=== PATIENT | female | born 1995 | race Hispanic/Latino ===

== ENCOUNTER 2018-07-14 15:15 | Emergency (ER) | payer OTHER, SELFPAY ==
[2018-07-14 16:05] LABS: Urine Blood NEGATIVE (NEG); Urine Glucose NEGATIVE (NEG); Urine Protein 1+ (NEG); Urine Specific Gravity 1.025 (1.005-1.030)
[2018-07-14] MEDS ORDERED: KETOROLAC 30 MG/ML INJ ONE (16:10)
[2018-07-14] MEDS ORDERED: HYDROCODONE/APAP 5/325 MG TAB ONE (16:10)
[2018-07-14] MEDS ORDERED: DIAZEPAM 2 MG TABLET ONE (16:10)
--- NOTE | 2018-07-14 16:59 | RAD REPORT ---
EXAM DESCRIPTION: RAD - Lumbar Spine 3 Views - 07/14/2018 4:10 pm CLINICAL HISTORY: Pain;Smash injury Radiculopathy COMPARISON: No comparisons FINDINGS: Vertebral body heights appear maintained. No compression fracture noted. Disc spaces are m aintained. No spondylolysis or spondylolisthesis. IMPRESSION: Negative study.
--- NOTE | 2018-07-14 17:12 | ER ---
Nurse's Notes [facility] Name: Kenyetta Conti Age: 22 yrs Sex: Female : 1995 Arrival Date: 07/14/2018 Time: 15:17 Bed 13 Private MD: None, None Diagnosis: Fall (on) (from) unspecified stairs and steps;Contusion of back wall of thorax;Low back pain Presentation: 07/14 15:22 Presenting complaint: Patient states: I slipped on the stairs and hit my butt on every la1 step (about 20) on the way down, pt denies head or neck trauma or LOC. Transition of care: patient was not received from another setting of care. Onset of symptoms was July 14, 2018. Risk Assessment: Do you want to hurt yourself or someone else? Patient reports no desire to harm self or others. Initial Sepsis Screen: Does the patient meet any 2 criteria? No. Patient's initial sepsis screen is negative. Does the patient have a suspected source of infection? No. Patient's initial sepsis screen is negative. Care prior to arrival: None. 15:22 Method Of Arrival: Wheelchair la1 15:22 Acuity: JUSTIN 4 la1 Historical: - Allergies: 15:24 No Known Allergies; la1 - PMHx: 15:24 Hypertension; High Cholesterol; la1 - Immunization history:: Adult Immunizations up to date. - Social history:: Smoking status: Patient/guardian denies using tobacco. - Ebola Screening: : No symptoms or risks identified at this time. Screenin:15 Abuse screen: Denies threats or abuse. Denies injuries from another. Nutritional jl7 screening: No deficits noted. Tuberculosis screening: No symptoms or risk factors identified. Fall Risk Fall in past 12 months (25 points). Total Oliver Fall Scale indicates No Risk (0-24 pts). Assessment: 15:15 General: Appears in no apparent distress. uncomfortable, Behavior is calm, cooperative, jl7 appropriate for age. Pain: Complains of pain in low back area and lumbar area Pain currently is 8 out of 10 on a pain scale. Neuro: Level of Consciousness is awake, alert, obeys commands, Oriented to person, place, time, situation, Online Content Editor are equal bilaterally. Cardiovascular: Patient's skin is warm and dry. Respiratory: Airway is patent Respiratory effort is even, unlabored, Respiratory pattern is regular, symmetrical. Derm: Skin is pink, warm \T\ dry. Musculoskeletal: Tenderness present in low back area and lumbar area. 16:15 Reassessment: Patient appears in no apparent distress at this time. No changes from jl7 previously documented assessment. Patient and/or family updated on plan of care and expected duration. Pain level reassessed. Patient is alert, oriented x 3, equal unlabored respirations, skin warm/dry/pink. 17:19 Reassessment: Ambulated pt approximately 50 ft, pt ambulated with slow steady gate, jl7 reports pain rating 6/10. Vital Signs: 15:24 Pulse 100; Resp 16; Temp 97.8; Pulse Ox 98% on R/A; Weight 81.65 kg; Height 4 ft. 11 la1 in. (149.86 cm); 15:24 BP 144 / 95; la1 15:57 BP 142 / 93; Pulse 105; Resp 18; Pulse Ox 99% on R/A; mh5 17:15 BP 140 / 90; Pulse 99; Resp 16 S; Pulse Ox 99% on R/A; Pain 6/10; jl7 15:24 Body Mass Index 36.36 (81.65 kg, 149.86 cm) la1 ED Course: 15:17 Patient arrived in ED. dl4 15:18 None, None is Private Physician. dl4 15:23 Triage completed. la1 15:24 Arm band placed on right wrist. la1 15:26 Lexi Cooper RN is Primary Nurse. jl7 15:30 Annalee Stanton [facility]C [facility]. snw 15:30 Jacob Olmedo MD is Attending Physician. snw 15:30 Patient has correct armband on for positive identification. Placed in gown. Bed in low jl7 position. Call light in reach. Side rails up X 1. Pulse ox on. NIBP on. 16:11 Lumbar Spine (3 Views) XRAY In Process Unspecified. EDMS 17:31 No provider procedures requiring assistance completed. Patient did not have IV access jl7 during this emergency room visit. Administered Medications: 16:24 Drug: TORadol 60 mg Route: IM; Site: right gluteus; jl7 17:18 Follow up: Response: No adverse reaction; Pain is decreased jl7 16:24 Drug: [place] 5 mg-325 mg 1 tabs Route: PO; jl7 17:18 Follow up: Response: No adverse reaction; Pain is decreased jl7 16:25 Drug: Valium 2 mg Route: PO; jl7 17:18 Follow up: Response: No adverse reaction; Pain is decreased jl7 Outcome: 17:11 Discharge ordered by MD. levine 17:31 Discharged to home ambulatory, with family. jl7 17:31 Condition: stable 17:31 Discharge instructions given to patient, family, Instructed on discharge instructions, follow up and referral plans. medication usage, Demonstrated understanding of instructions, follow-up care, medications, Prescriptions given X 2. 17:32 Patient left the ED. jl7 Signatures: Dispatcher [employer] EDMS Annalee Stanton, SAGE-C OBGYN HOSPITALIST PHYSICIAN-CsnTin Cabral RN RN Nery Mary 5 Lexi Cooper RN RN jl7 Johny Pacheco dl4 Corrections: (The following items were deleted from the chart) 16:34 13:15 General: Appears in no apparent distress. uncomfortable, Behavior is calm, jl7 cooperative, appropriate for age, jl7 16:34 13:15 Pain: Complains of pain in low back area and lumbar area Pain currently is 8 out jl7 of 10 on a pain scale. jl7 16:34 13:15 Neuro: Level of Consciousness is awake, alert, obeys commands, Oriented to jl7 person, place, time, situation, Online Content Editor are equal bilaterally jl7 16:34 13:15 Cardiovascular: Patient's skin is warm and dry. jl7 jl7 16:34 13:15 Respiratory: Airway is patent Respiratory effort is even, unlabored, Respiratory jl7 pattern is regular, symmetrical, jl7 16:34 13:15 Derm: Skin is pink, warm \T\ dry. jl7 jl7 16:34 13:15 Musculoskeletal: Tenderness present in low back area and lumbar area jl7 jl7
--- NOTE | 2018-07-14 17:12 | EDPHYS ---
Physician Documentation [facility] Name: Kenyetta Conti Age: 22 yrs Sex: Female : 1995 Arrival Date: 07/14/2018 Time: 15:17 Bed 13 Private MD: None, None ED Physician Jacob Olmedo HPI: 07/14 15:54 This 22 yrs old Female presents to ER via Wheelchair with complaints of Fall snw Injury, Back Injury. 15:54 Details of fall: The patient fell from an upright position, while walking. Onset: The snw symptoms/episode began/occurred suddenly, just prior to arrival. Associated injuries: The patient sustained injury to the low back, pain, pain with movement. Severity of symptoms: At their worst the symptoms were severe. The patient has not experienced similar symptoms in the past. The patient has not recently seen a physician. Historical: - Allergies: 15:24 No Known Allergies; la1 - PMHx: 15:24 Hypertension; High Cholesterol; la1 - Immunization history:: Adult Immunizations up to date. - Social history:: Smoking status: Patient/guardian denies using tobacco. - Ebola Screening: : No symptoms or risks identified at this time. ROS: 15:54 Constitutional: Negative for fever, chills, and weight loss, Eyes: Negative for injury, snw pain, redness, and discharge, ENT: Negative for injury, pain, and discharge, Neck: Negative for injury, pain, and swelling, Cardiovascular: Negative for chest pain, palpitations, and edema, Respiratory: Negative for shortness of breath, cough, wheezing, and pleuritic chest pain, Abdomen/GI: Negative for abdominal pain, nausea, vomiting, diarrhea, and constipation, : Negative for injury, bleeding, discharge, and swelling, MS/Extremity: Negative for injury and deformity, Skin: Negative for injury, rash, and discoloration, Neuro: Negative for headache, weakness, numbness, tingling, and seizure. 15:54 Back: Positive for decreased range of motion, pain at rest, pain with movement, of the lumbar area. Exam: 15:53 Constitutional: This is a well developed, well nourished patient who is awake, alert, snw and in no acute distress. Head/Face: Normocephalic, atraumatic. Eyes: Pupils equal round and reactive to light, extra-ocular motions intact. Lids and lashes normal. Conjunctiva and sclera are non-icteric and not injected. Cornea within normal limits. Periorbital areas with no swelling, redness, or edema. ENT: Nares patent. No nasal discharge, no septal abnormalities noted. Tympanic membranes are normal and external auditory canals are clear. Oropharynx with no redness, swelling, or masses, exudates, or evidence of obstruction, uvula midline. Mucous membranes moist. Neck: Trachea midline, no thyromegaly or masses palpated, and no cervical lymphadenopathy. Supple, full range of motion without nuchal rigidity, or vertebral point tenderness. No Meningismus. Chest/axilla: Normal chest wall appearance and motion. Nontender with no deformity. No lesions are appreciated. Cardiovascular: Regular rate and rhythm with a normal S1 and S2. No gallops, murmurs, or rubs. Normal PMI, no JVD. No pulse deficits. Respiratory: Lungs have equal breath sounds bilaterally, clear to auscultation and percussion. No rales, rhonchi or wheezes noted. No increased work of breathing, no retractions or nasal flaring. Abdomen/GI: Soft, non-tender, with normal bowel sounds. No distension or tympany. No guarding or rebound. No evidence of tenderness throughout. Skin: Warm, dry with normal turgor. Normal color with no rashes, no lesions, and no evidence of cellulitis. MS/ Extremity: Pulses equal, no cyanosis. Neurovascular intact. Full, normal range of motion. Neuro: Awake and alert, GCS 15, oriented to person, place, time, and situation. Cranial nerves II-XII grossly intact. Motor strength 5/5 in all extremities. Sensory grossly intact. Cerebellar exam normal. Normal gait. 15:53 Back: pain, that is moderate, that is severe, of the lumbar area, ROM is painful, normal spinal alignment noted, CVA tenderness, is absent, muscle spasm, is appreciated in the low back area. Vital Signs: 15:24 Pulse 100; Resp 16; Temp 97.8; Pulse Ox 98% on R/A; Weight 81.65 kg; Height 4 ft. 11 la1 in. (149.86 cm); 15:24 BP 144 / 95; la1 15:57 BP 142 / 93; Pulse 105; Resp 18; Pulse Ox 99% on R/A; mh5 17:15 BP 140 / 90; Pulse 99; Resp 16 S; Pulse Ox 99% on R/A; Pain 6/10; jl7 15:24 Body Mass Index 36.36 (81.65 kg, 149.86 cm) la1 MDM: 15:45 Patient medically screened. snw 23:12 Data reviewed: vital signs, nurses notes. Data interpreted: Pulse oximetry: on room air snw is 99 %. Interpretation: normal. Counseling: I had a detailed discussion with the patient and/or guardian regarding: the historical points, exam findings, and any diagnostic results supporting the discharge/admit diagnosis, the presence of at least one elevated blood pressure reading (>120/80) during this emergency department visit, lab results, radiology results, the need for outpatient follow up, to return to the emergency department if symptoms worsen or persist or if there are any questions or concerns that arise at home. Special discussion: Based on the patient's history, exam and DX evaluation, there is no indication for emergent intervention or inpatient TX. It is understood by the patient/guardian that if the SXs persist or worsen they need to return immediately for re-evaluation. Based on the history and exam findings, there is no indication for further emergent testing or inpatient evaluation. I discussed with the patient/guardian the need to see the orthopedic surgeon for further evaluation of the symptoms. I discussed with the patient/guardian the need to see the primary care provider for further evaluation of the symptoms. 07/14 15:45 Order name: Lumbar Spine (3 Views) XRAY; Complete Time: 17:09 snw 07/14 15:49 Order name: Urine Dipstick--Ancillary (enter results); Complete Time: 16:18 ag 07/14 15:49 Order name: Urine --Ancillary (enter results); Complete Time: 16:18 ag 07/14 15:31 Order name: Urine Test (obtain specimen); Complete Time: 15:50 snw 07/14 15:31 Order name: Urine Dipstick-Ancillary (obtain specimen); Complete Time: 15:50 snw 07/14 16:38 [place] [facility] [place]: Please ambulate with patient in hallway; Complete Time: 17:18 snw Administered Medications: 16:24 Drug: TORadol 60 mg Route: IM; Site: right gluteus; jl7 17:18 Follow up: Response: No adverse reaction; Pain is decreased jl7 16:24 Drug: [place] 5 mg-325 mg 1 tabs Route: PO; jl7 17:18 Follow up: Response: No adverse reaction; Pain is decreased jl7 16:25 Drug: Valium 2 mg Route: PO; jl7 17:18 Follow up: Response: No adverse reaction; Pain is decreased jl7 Disposition: 07/14/18 17:11 Discharged to Home. Impression: Fall (on) (from) unspecified stairs and steps, Contusion of back wall of thorax, Low back pain. - Condition is Stable. - Discharge Instructions: Back Pain, Adult, Hypertension, Musculoskeletal Pain, Back Injury Prevention, [id number]-ua-[id number], Cryotherapy, Rehydration, Adult, Heat Therapy, Radicular Pain. - Prescriptions for Diclofenac Sodium 75 mg Oral Tablet Sustained Release - take 1 tablet by ORAL route 2 times per day; 30 tablet. orphenadrine citrate 100 mg Oral Tablet Sustained Release - take 1 tablet by ORAL route 2 times per day As needed; 20 tablet. - Work release form, Medication Reconciliation Form, Thank You Letter, Antibiotic Education, Prescription Opioid Use form. - Follow up: Private Physician; When: 2 - 3 days; Reason: Recheck today's complaints, Continuance of care, Re-evaluation by your physician. Follow up: Emergency Department; When: As needed; Reason: Worsening of condition. Addendum: 07/25/2018 15:40 Co-signature as Attending Physician, Jacob Olmedo MD Available for consultation at p s1 all times. . Signatures: Dispatcher [employer] EDWY Annalee Stanton, HYBRID POWERTRAIN DEVELOPMENT ENGINEER-C HYBRID POWERTRAIN DEVELOPMENT ENGINEER-Csnw Tin Salazar, RN RN Lexi Sinclair RN RN jl7 Jacob Olmedo MD MD ps1 Corrections: (The following items were deleted from the chart) 07/14 16:05 15:31 Urine Culture+BA.LAB.BRZ ordered. EDWY EDWY 16:05 15:31 UA MICROSCOPIC+U.LAB.BRZ ordered. EDWY EDMS 17:32 17:11 07/14/2018 17:11 Discharged to Home. Impression: Fall (on) (from) unspecified jl7 stairs and steps; Contusion of back wall of thorax; Low back pain. Condition is Stable. Forms are Medication Reconciliation Form, Thank You Letter, Antibiotic Education, Prescription Opioid Use. Follow up: Private Physician; When: 2 - 3 days; Reason: Recheck today's complaints, Continuance of care, Re-evaluation by your physician. Follow up: Emergency Department; When: As needed; Reason: Worsening of condition. snw
== END 2018-07-14 17:32 | disposition home or self-care (01) ==
LOC: ER 15:15
DX: S20.229A Contusion of unspecified back wall of thorax, initial encounter (principal); M54.5 Low back pain; W10.9XXA Fall (on) (from) unspecified stairs and steps, initial encounter
CPT/HCPCS: 72100; 81003; 81025; 96372; 99284

== ENCOUNTER 2018-09-10 10:12 | Emergency (ER) | payer SELFPAY ==
[2018-09-10] MEDS ORDERED: NA CHLORIDE 0.9% 1,000 ML ONE (10:55)
[2018-09-10] MEDS ORDERED: ONDANSETRON 4 MG/2 ML VIAL ONE (10:55)
--- NOTE | 2018-09-10 11:49 | ER ---
Nurse's Notes [facility] Name: Kenyetta Conti Age: 22 yrs Sex: Female : 1995 Arrival Date: 09/10/2018 Time: 10:13 Bed 8 Private MD: None, None Diagnosis: Poisoning by local astringents and local detergents, accidental (unintentional);Anal fissure, unspecified Presentation: 09/10 10:19 Presenting complaint: Patient states: Accidentally drank a little bit of a chemical sg called OdoBan, now having nausea and vomiting. Transition of care: patient was not received from another setting of care. Onset of symptoms was September 10, 2018. Risk Assessment: Do you want to hurt yourself or someone else? Patient reports no desire to harm self or others. Initial Sepsis Screen: Does the patient meet any 2 criteria? No. Patient's initial sepsis screen is negative. Does the patient have a suspected source of infection? No. Patient's initial sepsis screen is negative. Care prior to arrival: None. 10:19 Method Of Arrival: Ambulatory sg 10:19 Acuity: JUSTIN 3 sg Historical: - Allergies: 10:26 No Known Allergies; sg - Home Meds: 10:26 None [Active]; sg - PMHx: 10:26 High Cholesterol; Hypertension; sg - PSHx: 10:26 None; sg - Immunization history:: Adult Immunizations up to date. - Social history:: The patient lives at home, Smoking status: Patient/guardian denies using tobacco. - Ebola Screening: : Patient negative for fever greater than or equal to 101.5 degrees Fahrenheit, and additional compatible Ebola Virus Disease symptoms Patient denies exposure to infectious person Patient denies travel to an Ebola-affected area in the 21 days before illness onset No symptoms or risks identified at this time. Screenin:20 Abuse screen: Denies threats or abuse. Denies injuries from another. Nutritional sg screening: No deficits noted. Tuberculosis screening: No symptoms or risk factors identified. Never had TB. Fall Risk None identified. Assessment: 10:20 General: Appears in no apparent distress. comfortable, well groomed, well developed, sg well nourished, Behavior is calm, cooperative, appropriate for age. Pain: Denies pain. Neuro: Level of Consciousness is awake, alert, obeys commands, Oriented to person, place, time, situation, Associate Professor Of Library Media are equal bilaterally Moves all extremities. Gait is steady, Speech is normal, Facial symmetry appears normal, Pupils are PERRLA. Cardiovascular: Capillary refill is brisk in bilateral fingers Patient's skin is warm and dry. Chest pain is denied. Respiratory: Airway is patent Respiratory effort is even, unlabored, Respiratory pattern is regular, symmetrical. GI: Abdomen is round non-distended, Reports nausea, "dry heaving". : No signs and/or symptoms were reported regarding the genitourinary system. EENT: No signs and/or symptoms were reported regarding the EENT system. Derm: Skin is pink, warm \\T\\ dry. Musculoskeletal: No signs and/or symptoms reported regarding the musculoskeletal system. 10:29 Reassessment: poison control notified , instructed to manage sg symptoms, administer antiemitics as needed, if pt tolerates PO she can be discharged to home, spoke with parts counter representative named Kvein. 11:57 Reassessment: at bedside evaluating pt prior to dc to home, IV fluids continue sg to infuse, will dc to home as ordered, pt tolerating po water. 12:00 Reassessment: Reassessment: pt updating , reports rectal bleeding with BM sg occurring for 1 year at this time, awaiting exam prior to dc to home per . Vital Signs: 10:20 BP 139 / 90; Pulse 108; Resp 17; Temp 97.7; Pulse Ox 100% on R/A; Pain 2/10; sg 11:41 BP 116 / 78; Pulse 87; Resp 17; Pulse Ox 99% on R/A; Pain 2/10; sg ED Course: 10:13 Patient arrived in ED. dl4 10:14 None, None is Private Physician. dl4 10:18 Arm band placed on. sg 10:20 Triage completed. sg 10:20 Patient has correct armband on for positive identification. Bed in low position. Call sg light in reach. Adult w/ patient. Pulse ox on. NIBP on. Warm blanket given. Head of bed elevated. 10:23 Jasper Angel MD is Attending Physician. gs 10:25 No provider procedures requiring assistance completed. sg 10:39 Milton Mccabe, SALENA is Primary Nurse. sg 10:40 Initial lab(s) drawn, by me, held in ED. Inserted saline lock: 22 gauge in right sg antecubital area, using aseptic technique. Blood collected. 12:28 Served as a solderer barrel ribs during rectal exam. 12:30 IV discontinued, intact, bleeding controlled, No redness/swelling at site. Pressure sg dressing applied. Administered Medications: 10:50 Drug: NS 0.9% 1000 ml Route: IV; Rate: 1 bolus; Site: right antecubital; sg 10:50 Drug: Zofran 4 mg Route: IVP; Site: right antecubital; sg 11:40 Follow up: Response: No adverse reaction; Nausea is decreased sg Outcome: 11:49 Discharge ordered by MD. 12:30 Discharged to home ambulatory, with family. sg 12:30 Condition: good 12:30 Discharge instructions given to patient, Instructed on discharge instructions, follow up and referral plans. medication usage, safety practices, Demonstrated understanding of instructions, follow-up care, medications, Prescriptions given X 2. 12:36 Patient left the ED. sg Signatures: Milton Mccabe RN RN sg Smirch, Shelby, RN RN Jasper Angel MD MD gs Luna, David dl4
--- NOTE | 2018-09-10 11:50 | EDPHYS ---
Physician Documentation [facility] Name: Kenyetta Conti Age: 22 yrs Sex: Female : 1995 Arrival Date: 09/10/2018 Time: 10:13 Bed 8 Private MD: None, None ED Physician Jasper Angel HPI: 09/10 11:44 This 22 yrs old Female presents to ER via Ambulatory with complaints of gs Chemical Exposure. 11:44 accidental ingestion of substance in water bottle left by family member 30-60 ml gs ingestion, liquid know reviewed by msds and poison control symptoms include mild nausea. Historical: - Allergies: 10:26 No Known Allergies; sg - Home Meds: 10:26 None [Active]; sg - PMHx: 10:26 High Cholesterol; Hypertension; sg - PSHx: 10:26 None; sg - Immunization history:: Adult Immunizations up to date. - Social history:: The patient lives at home, Smoking status: Patient/guardian denies using tobacco. - Ebola Screening: : Patient negative for fever greater than or equal to 101.5 degrees Fahrenheit, and additional compatible Ebola Virus Disease symptoms Patient denies exposure to infectious person Patient denies travel to an Ebola-affected area in the 21 days before illness onset No symptoms or risks identified at this time. ROS: 11:44 All other systems are negative. gs 12:29 Abdomen/GI: Positive for rectal pain and mild bleeding with bm only for over a year. gs Exam: 11:44 Head/Face: Normocephalic, atraumatic. Eyes: Pupils equal round and reactive to light, gs extra-ocular motions intact. Lids and lashes normal. Conjunctiva and sclera are non-icteric and not injected. Cornea within normal limits. Periorbital areas with no swelling, redness, or edema. ENT: Nares patent. No nasal discharge, no septal abnormalities noted. Tympanic membranes are normal and external auditory canals are clear. Oropharynx with no redness, swelling, or masses, exudates, or evidence of obstruction, uvula midline. Mucous membranes moist. Neck: Trachea midline, no thyromegaly or masses palpated, and no cervical lymphadenopathy. Supple, full range of motion without nuchal rigidity, or vertebral point tenderness. No Meningismus. Chest/axilla: Normal chest wall appearance and motion. Nontender with no deformity. No lesions are appreciated. Cardiovascular: Regular rate and rhythm with a normal S1 and S2. No gallops, murmurs, or rubs. Normal PMI, no JVD. No pulse deficits. Respiratory: Lungs have equal breath sounds bilaterally, clear to auscultation and percussion. No rales, rhonchi or wheezes noted. No increased work of breathing, no retractions or nasal flaring. Abdomen/GI: Soft, non-tender, with normal bowel sounds. No distension or tympany. No guarding or rebound. No evidence of tenderness throughout. Back: No spinal tenderness. No costovertebral tenderness. Full range of motion. Skin: Warm, dry with normal turgor. Normal color with no rashes, no lesions, and no evidence of cellulitis. MS/ Extremity: Pulses equal, no cyanosis. Neurovascular intact. Full, normal range of motion. Neuro: Awake and alert, GCS 15, oriented to person, place, time, and situation. Cranial nerves II-XII grossly intact. Motor strength 5/5 in all extremities. Sensory grossly intact. Cerebellar exam normal. Normal gait. 11:44 Constitutional: The patient appears alert, awake. Vital Signs: 10:20 BP 139 / 90; Pulse 108; Resp 17; Temp 97.7; Pulse Ox 100% on R/A; Pain 2/10; sg 11:41 BP 116 / 78; Pulse 87; Resp 17; Pulse Ox 99% on R/A; Pain 2/10; sg MDM: 10:38 Patient medically screened. gs 11:44 Differential Diagnosis toxic ingestion , non toxic injestion. Data reviewed: vital gs signs, nurses notes. Counseling: I had a detailed discussion with the patient and/or guardian regarding: the historical points, exam findings, and any diagnostic results supporting the discharge/admit diagnosis, the need for outpatient follow up, to return to the emergency department if symptoms worsen or persist or if there are any questions or concerns that arise at home. Response to treatment: the patient's symptoms have markedly improved after treatment, and as a result, I will discharge patient. 09/10 12:28 Order name: Occult Blood--Ancillary ss Administered Medications: 10:50 Drug: NS 0.9% 1000 ml Route: IV; Rate: 1 bolus; Site: right antecubital; sg 10:50 Drug: Zofran 4 mg Route: IVP; Site: right antecubital; sg 11:40 Follow up: Response: No adverse reaction; Nausea is decreased sg Disposition: 09/10/18 11:49 Discharged to Home. Impression: Poisoning by local astringents and local detergents, accidental (unintentional), Anal fissure, unspecified. - Condition is Stable. - Discharge Instructions: Nontoxic Ingestion. - Prescriptions for Zofran 4 mg Oral Tablet - take 1 tablet by ORAL route every 12 hours As needed; 6 tablet. Colace 100 mg Oral Tablet - take 1 tablet by ORAL route every 12 hours; 14 tablet. - Work release form, Medication Reconciliation Form, Thank You Letter, Antibiotic Education, Prescription Opioid Use form. - Follow up: Private Physician; When: 2 - 3 days; Reason: Re-evaluation by your physician. Signatures: Dispatcher [employer] EDMS Milton Mccabe RN RN sg Starr, Gregory, MD MD gs Corrections: (The following items were deleted from the chart) 12:28 11:49 09/10/2018 11:49 Discharged to Home. Impression: Poisoning by local astringents gs and local detergents, accidental (unintentional). Condition is Stable. Forms are Medication Reconciliation Form, Thank You Letter, Antibiotic Education, Prescription Opioid Use. Follow up: Private Physician; When: 2 - 3 days; Reason: Re-evaluation by your physician. 12:36 12:28 09/10/2018 11:49 Discharged to Home. Impression: Poisoning by local astringents sg and local detergents, accidental (unintentional); Anal fissure, unspecified. Condition is Stable. Discharge Instructions: Nontoxic Ingestion. Prescriptions for Zofran 4 mg Oral Tablet - take 1 tablet by ORAL route every 12 hours As needed; 6 tablet. and Forms are Medication Reconciliation Form, Thank You Letter, Antibiotic Education, Prescription Opioid Use, Work release form. Follow up: Private Physician; When: 2 - 3 days; Reason: Re-evaluation by your physician.
== END 2018-09-10 12:36 | disposition home or self-care (01) ==
LOC: ER 10:12
DX: T65.891A Toxic effect of other specified substances, accidental (unintentional), initial encounter (principal); K60.2 Anal fissure, unspecified; I10 Essential (primary) hypertension
CPT/HCPCS: 82272; J2405; J7030

== ENCOUNTER 2023-01-05 22:50 | Emergency (ER) | payer SELFPAY ==
--- OUTSIDE RECORDS SUMMARY | 2023-01-05 22:52 | XMS REPORT | Continuity of Care Document ---
:1995 Author Organization [facility] t Address [address] [facility] [address] [place] [id number] Care Team Providers Name Role Phone PCP, PATIENT DOES NOT HAVE A Primary Care Physician UnavailTRAM Blake Attending Clinician Unavailable Tram Patricio Attending Clinician URVASHI Attending Clinician Unavailable Sierra Hadley Attending Clinician Agnes Allison RN Attending Clinician Unavailable Pob1, Acute Care Clinic Attending Clinician Unavailable SIERRA VILLARREAL Attending Clinician Unavailable URVASHI Admitting Clinician Unavailable Payers Payer Name Policy Type Policy Number Effective Date Expiration Date S ource Problems Condition Condition Condition Status Onset Resolution Last Treating Co mments Source Name Details Category Date Date Treatment Clinician Date No known No known Disease Unive rs active active ity of problems problems [facility] Allergies, Adverse Reactions, Alerts Allergy Allergy Status Severity Reaction(s) Onset Inactive Treating Comm ents Source Name Type Date Date Clinician NO KNOWN Drug Active Univers ALLERGIE Class ity of S [facility] Social History Social Habit Start Date Stop Date Quantity Comments Source Exposure to 2022-11-10 2022-11-20 Not sure University SARS-CoV-2 00:00:00 20:06:00 [facility] (event) [place] Tobacco use and 2019-11-03 2019-11-03 Smokeless tobacco Un iversity of exposure 00:00:00 00:00:00 non-user [facility] Sex Assigned At [birth year] Universit y of 00:00:00 00:00:00 [facility] Smoking Status Start Date Stop Date Source Never smoked tobacco [facility] Medications Ordered Filled Start Stop Current Ordering Indication Dosage Frequency Signature Comments Components Source Medication Medication Date Date Medication? Clinician (SIG) Name Name escitalopra 2022-0 Yes 20mg Take 1 Univ ers m oxalate - tablet by ity o f (LEXAPRO) 22:49[place] 20 [place] 37 the Medical tablet morning. Branch SERTraline 2022-0 2022- No 25mg Take 25 mg Univers 25 mg 5-07 27-01 by mouth ity of tablet 21:26: 00:00 daily. [place] 56 :00 [facility] lisinopril 2022-0 Yes 10mg Take 10 mg U nivers 10 mg 5-01 by mouth ity of tablet 20:09: daily. [address] hydrOXYzine 2022-0 Yes 100mg Take 100 U nivers 100 mg 5-01 mg by ity of capsule 20:09: mouth [address] times [place] daily as needed for Itching. lisinopril 2020-0 Yes 10mg Take 10 mg U nivers 10 mg 4-13 by mouth ity of tablet 14:59: daily. [address] SERTraline 2020-0 Yes 25mg Take 25 mg U nivers 25 mg 4-13 by mouth ity of tablet 14:59: daily. [address] hydrOXYzine 2020-0 Yes 100mg Take 100 U nivers 100 mg 4-13 mg by ity of capsule 14:59: mouth [address] times [place] daily as needed for Itching. lisinopril 2020-0 Yes 10mg Take 10 mg U nivers 10 mg 4-13 by mouth ity of tablet 14:59: daily. [address] SERTraline 2020-0 Yes 25mg Take 25 mg U nivers 25 mg 4-13 by mouth ity of tablet 14:59: daily. [address] hydrOXYzine 2020-0 Yes 100mg Take 100 U nivers 100 mg 4-13 mg by ity of capsule 14:59: mouth 3 [place] [address] ([facility]) [facility] times [place] daily as needed for Itching. lisinopril 2020-0 Yes 10mg Take 10 mg U nivers 10 mg 4-13 by mouth ity of tablet 14:59: daily. [address] SERTraline 2020-0 Yes 25mg Take 25 mg U nivers 25 mg 4-13 by mouth ity of tablet 14:59: daily. [address] hydrOXYzine 2020-0 Yes 100mg Take 100 U nivers 100 mg 4-13 mg by ity of capsule 14:59: mouth 3 [place] [address] (three) Medical times Branch daily as needed for Itching. benzonatate 2020-0 2020- No [id number] 100mg Take 1 Univers (TESSALON 4-13 04-28 capsule by ity MORGANRobert Applebaum MD) 100 00:00: 04:59 mouth 3 [place] mg capsule 00 :00 (three) Medica l times Branch daily for 14 days. benzonatate 2020-0 2020- No [id number] 100mg Take 1 Univers (TESSALON 4-13 04-28 capsule by itdom MORGAN) 100 00:00: 04:59 mouth 3 [place] mg capsule 00 :00 (three) Medica l times [place] daily for 14 days. benzonatate 2020-0 2020- No [id number] 100mg Take 1 Univers (TESSALON 4-13 04-28 [facility] 100 00:00: 04:59 mouth 3 [place] mg capsule 00 :00 (three) Medica l times [place] daily for 14 days. Vital Signs Vital Name Observation Time Observation Value Comments Source Systolic blood 2022-11-21 03:45:27 133 mm[Hg] [facility] Diastolic blood 2022-11-21 03:45:27 84 mm[Hg] [facility] Heart rate 2022-11-21 03:45:27 68 /min [facility] Respiratory rate 2022-11-21 03:45:27 16 /min [facility] Oxygen saturation in 2022-11-21 03:45:27 97 /min [facility] Arterial blood by [facility] Pulse oximetry Branch Body temperature 2022-11-21 01:09:00 36.89 Yue [facility] Body height 2022-11-21 01:09:00 149.9 cm [facility] Body weight 2022-11-21 01:09:00 84.823 kg [facility] BMI 2022-11-21 01:09:00 37.77 kg/m2 [facility] blood 2019-11-03 14:56:00 113 mm[Hg] Univer sity of pressure [facility] Diastolic blood 2019-11-03 14:56:00 78 mm[Hg] Unive rsity of pressure [facility] Heart rate 2019-11-03 14:56:00 100 /min [facility] Body temperature 2019-11-03 14:56:00 36.61 Yue [facility] in 2019-11-03 14:56:00 99 /min [facility] Arterial blood by [facility] Pulse oximetry [place] Procedures Procedure Date / Time Performed Performing Clinician [facility] e CONSENT/REFUSAL FOR 2022-11-21 01:02:48 [facility] Name [facility] TREATMENT NOTICE OF PRIVACY 2022-11-21 01:02:09 Doctor Unassigned, No Univ ersity of [place] PRACTICES Name Medical [place] Encounters Start End Encounter Admission Attending Care Care Encounter Source Date/Time Date/Time Type Type Clinicians Facility Department ID 2022-11-20 2022-11-20 Emergency [facility] [id number] Univers 20:12:00 23:10:00 TRAM itdom [facility] 2022-11-20 2022-11-20 [facility] [id number] Univers 20:12:00 23:10:00 [place] [facility] [id number] i [facility] [id number] [facility] [id number] Medi gurpreet 084 Branch 2022-09-28 2022-09-28 Outpatient SFA SFA [id number] [place]t 14:44:45 14:44:45 [id number] F [place] 2021-11-09 2021-11-09 Outpatient MARCO A DELUNA [facility] [id number] 11:37:00 11:37:00 IE 0420 da [facility] 2019-11-04 2019-11-04 Telephone Nereida [facility] [id number] Univers 00:00:00 00:00:00 SierraProfig [id number] it y of [place] [id number] Gene as Professio [id number] [address] Office [address] 2019-11-04 2019-11-04 Telephone MIKAYLA Allison [id number] Univers 00:00:00 00:00:00 Agnes BOOKER [id number] i ty of [facility] [id number] Gene as [id number] [address] 2019-11-03 2019-11-03 Urgent Pob1, Acute Care Clinic [facility] [id number] Univers 09:50:03 10:10:03 Care Sierra Villarreal [facility] [id number] ity of [place] [id number] Gene as Professio [id number] [address] Office [address] 2019-11-03 2019-11-03 Outpatient R [facility] [id number] Univers 10:00:00 10:00:00 SIERRA dykes of [facility] Results This patient has no known results.
[2023-01-06 00:40] LABS: Specific Gravity 1.031 (1.005-1.030)
[2023-01-06 00:49] LABS: Specific Gravity > 1.030 (1.005-1.030); Urine Bacteria None Seen /HPF (<20); Urine Bilirubin NEGATIVE (Negative); Urine Blood Negative (Negative); Urine Clarity Clear (Clear); Urine Color Light-Yellow (Yellow); Urine Glucose NEGATIVE (Negative); Urine Mucus Slight /HPF (None Seen); Urine Protein TRACE (Negative); Urine RBC <5 /HPF (None Seen); Urine Urobilinogen 1+ (Normal)
[2023-01-06 01:43] LABS: Absolute Lymphocytes (CBC) 5.2 K/uL (0.7-4.9); Hematocrit 39.1 % (36.0-45.0); Lymphocytes % 42.9 % (15.3-44.8); MCV 81.5 fL (80-100); MPV 8.2 fL (7.6-11.3)
[2023-01-06 02:00] LABS: Albumin 3.3 g/dL (3.4-5.0); Bilirubin Total 0.3 mg/dL (0.2-1.0); Potassium 3.5 mEq/L (3.5-5.1); Protein, Total 7.7 g/dL (6.4-8.2)
--- NOTE | 2023-01-06 03:02 | EDPHYS ---
Physician Documentation [facility] Name: Kenyetta Conti Age: 27 yrs Sex: Female : 1995 Arrival Date: 01/05/2023 Time: 22:50 Bed 11 Private MD: ED Physician Ron Davey HPI: 01/05 23:45 This 27 yrs old Female presents to ER via Ambulatory with complaints of cp Vaginal Pain. 23:45 The patient presents with vaginal pain and swelling and redness. Onset: The cp symptoms/episode began/occurred 1.5 week(s) ago. Associated signs and symptoms: Pertinent positives: pain with intercourse, Pertinent negatives: dysuria, fever, vaginal bleeding, vaginal discharge. The patient's method of control includes nothing. 23:45 Severity of symptoms: in the emergency department the symptoms are unchanged, has tried cp OTC antibiotic cream. The patient is sexually active, reportedly has a single partner. 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 - Social history:: Smoking status: Patient denies any tobacco usage or history of. ROS: 23:50 Constitutional: Negative for body aches, chills, fever, poor PO intake. cp 23:50 Abdomen/GI: Negative for abdominal pain, nausea, vomiting, and diarrhea. cp 23:50 : Positive for vaginal pain and swelling and redness, Negative for urinary symptoms, vaginal bleeding, vaginal discharge. 23:50 Skin: Negative for rash. 23:50 Neuro: Negative for altered mental status, headache. 23:50 All other systems are negative. Exam: 23:55 Constitutional: The patient appears in no acute distress, alert, awake, comfortable, cp non-toxic, well developed, well nourished. 23:55 Head/Face: Normocephalic, atraumatic. cp 23:55 Eyes: Periorbital structures: appear normal, Conjunctiva: normal, no exudate, no injection, Lids and lashes: appear normal, bilaterally. 23:55 ENT: External ear(s): are unremarkable, Nose: is normal, Mouth: Lips: moist, Oral mucosa: moist. 23:55 Chest/axilla: Inspection: normal. 23:55 Cardiovascular: Rate: normal. 23:55 Respiratory: the patient does not display signs of respiratory distress, Respirations: normal, no use of accessory muscles. 23:55 Abdomen/GI: Inspection: abdomen appears normal, Palpation: abdomen is soft and non-tender, in all quadrants. 23:55 : Pelvic Exam: External exam: mid swelling, tenderness, mild erythema noted upper vagina. no rashes and/or lesions noted, Speculum exam: no bleeding is noted, discharge, white, mild, the nurse was present for the exam. Vital Signs: 23:15 BP 159 / 102; Pulse 88; Resp 18 S; Temp 98.1(TE); Pulse Ox 97% on R/A; Weight 81.65 kg as6 (R); Height 4 ft. 11 in. (R); Pain 6/10; 01/06 03:24 BP 134 / 89; Pulse 76; Resp 18 S; Pulse Ox 99% on R/A; as6 01/05 23:15 Body Mass Index 36.36 (81.65 kg, 149.86 cm) as6 01/05 23:15 Pain Scale: Adult as6 MDM: 01/05 23:19 Patient medically screened. 01/06 02:00 Differential diagnosis: pelvic inflammatory disease, urinary tract infection, cp vaginosis, std. 03:00 Data reviewed: vital signs, nurses notes, lab test result(s). cp 03:00 I considered the following discharge prescriptions or medication management in the emergency department Medications were administered in the Emergency Department. See MAR. Counseling: I had a detailed discussion with the patient and/or guardian regarding: the historical points, exam findings, and any diagnostic results supporting the discharge/admit diagnosis, lab results, the need for outpatient follow up, a family practitioner, to return to the emergency department if symptoms worsen or persist or if there are any questions or concerns that arise at home. 01/06 00:16 Order name: CBC with Diff; Complete Time: 02:10 cp 01/06 02:10 Interpretation: Abnormal: WBC 12.00; LYMA 5.2. 01/06 00:16 Order name: CMP; Complete Time: 02:10 cp 01/06 00:16 Order name: Lipase; Complete Time: 02:10 cp 01/06 00:16 Order name: Test, Urine; Complete Time: 01:34 cp 01/06 01:34 Interpretation: Reviewed. cp 01/06 00:16 Order name: Urinalysis w/ reflexes; Complete Time: 01:34 cp 01/06 01:34 Interpretation: Reviewed. cp 01/06 02:11 Order name: Wet Prep; Complete Time: 02:58 cp 01/06 02:58 Interpretation: Reviewed. cp 01/06 00:16 Order name: IV Saline Lock; Complete Time: 01:33 cp 01/06 00:16 Order name: Labs collected and sent; Complete Time: 01:33 cp 01/06 00:16 Order name: Pelvic Exam Setup; Complete Time: 01:33 cp Administered Medications: 03:15 Drug: Fluconazole PO 200 mg Route: PO; as6 03:22 Follow up: Response: No adverse reaction as6 03:15 Drug: Rocephin IV 1 grams Route: IV; Rate: calculated rate; Site: right antecubital; as6 03:22 Follow up: Response: No adverse reaction; IV Status: Completed infusion; IV Intake: [id number] 03:15 Drug: AZITHromycin PO 1 grams Route: PO; as6 03:22 Follow up: Response: No adverse reaction as6 Disposition: 06:27 Co-signature as Attending Physician, Ron Davey MD I agree with the assessment sp4 and plan of care. I reviewed the patient's care provided by the Advanced Practice Provider and agree with the diagnosis and treatment plan. Disposition Summary: 01/06/23 03:01 Discharge Ordered Location: Home cp Problem: new cp Symptoms: have improved cp Condition: Stable cp Diagnosis - Vaginitis, vulvitis and vulvovaginitis in diseases classified elsewhere cp Followup: cp - With: Private Physician - When: 1 week - Reason: Recheck today's complaints Discharge Instructions: - Discharge Summary Sheet cp - Vaginitis cp Forms: - Medication Reconciliation Form cp - Thank You Letter cp - Antibiotic Education cp - Prescription Opioid Use cp Prescriptions: - Clotrimazole 1 % Vaginal Cream - insert 1 applicatorful by VAGINAL route At bedtime for 7 days; 60 gram tube; cp Refills: 0, Product Selection Permitted - Ibuprofen 800 mg Oral Tablet - take 1 tablet by ORAL route every 8 hours As needed take with food; 30 tablet; cp Refills: 0, Product Selection Permitted - Doxycycline Hyclate 100 mg Oral Tablet - take 1 tablet by ORAL route every 12 hours; 20 tablet; Refills: 0, Product cp Selection Permitted - Metronidazole 500 mg Oral Tablet - take 1 tablet by ORAL route every 8 hours; 30 tablet; Refills: 0, Product cp Selection Permitted Signatures: Dispatcher [employer] EDMA Rell Dickey PA PA cp Slawson, Ashby, RN RN as6 Ron Davey MD MD sp4 Corrections: (The following items were deleted from the chart) 02:10 02:10 Abnormal: WBC 12.00. cp cp
--- NOTE | 2023-01-06 03:02 | ER ---
Nurse's Notes [facility] Name: Kenyetta Conti Age: 27 yrs Sex: Female : 1995 Arrival Date: 01/05/2023 Time: 22:50 Bed 11 Private MD: Diagnosis: Vaginitis, vulvitis and vulvovaginitis in diseases classified elsewhere Presentation: 01/05 23:15 Chief complaint: Patient states: "For about a week and a half I have been having as6 vaginal pain and there seems to be redness on the outside". Coronavirus screen: At this time, the client does not indicate any symptoms associated with coronavirus-19. Ebola Screen: No symptoms or risks identified at this time. Initial Sepsis Screen: Does the patient meet any 2 criteria? No. Patient's initial sepsis screen is negative. Does the patient have a suspected source of infection? No. Patient's initial sepsis screen is negative. Risk Assessment: Do you want to hurt yourself or someone else? Patient reports no desire to harm self or others. Onset of symptoms was December 26, 2022. 23:15 Method Of Arrival: Ambulatory as6 23:15 Acuity: JUSTIN 4 as6 Triage Assessment: 01/06 01:35 General: Appears in no apparent distress. Behavior is calm, cooperative. Pain: as6 Complains of pain in groin. EENT: No deficits noted. No signs and/or symptoms were reported regarding the EENT system. Neuro: Level of Consciousness is awake, alert, obeys commands, Oriented to person, place, time, situation. Cardiovascular: Capillary refill Patient's skin is warm and dry. Respiratory: No deficits noted. GI: No deficits noted. No signs and/or symptoms were reported involving the gastrointestinal system. : No deficits noted. No signs and/or symptoms were reported regarding the genitourinary system. Derm: redness to groin. 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 - Social history:: Smoking status: Patient denies any tobacco usage or history of. Screenin/17 03:23 [facility] ED Fall Risk Assessment (Adult) Score/Fall Risk Level 0 - 2 = Low Risk. Abuse as6 screen: Denies threats or abuse. Denies injuries from another. Nutritional screening: No deficits noted. Tuberculosis screening: No symptoms or risk factors identified. Vital Signs: 01/05 23:15 BP 159 / 102; Pulse 88; Resp 18 S; Temp 98.1(TE); Pulse Ox 97% on R/A; Weight 81.65 kg as6 (R); Height 4 ft. 11 in. (R); Pain 6/; 01/06 03:24 BP 134 / 89; Pulse 76; Resp 18 S; Pulse Ox 99% on R/A; as6 01/05 23:15 Body Mass Index 36.36 (81.65 kg, 149.86 cm) as6 01/05 23:15 Pain Scale: Adult as6 ED Course: 01/05 22:51 Patient arrived in ED. ja2 22:53 Rell Dickey PA is PHCP. cp 22:53 Ron Davey MD is Attending Physician. cp 23:18 Triage completed. as6 23:19 Arm band placed on. as6 01/06 01:25 Hood Caruso, SALENA is Primary Nurse. as6 01:33 Inserted saline lock: 20 gauge in right antecubital area, using aseptic technique. as6 Blood collected. 02:11 Assist provider with pelvic exam: Set up pelvic tray. Performed by eRll MELGAR as6 Specimens sent to lab. Patient tolerated well. 03:24 Placed in gown. Bed in low position. Call light in reach. as6 03:24 IV discontinued, intact, bleeding controlled, No redness/swelling at site. Pressure as6 dressing applied. Administered Medications: 03:15 Drug: Fluconazole PO 200 mg Route: PO; as6 03:22 Follow up: Response: No adverse reaction as6 03:15 Drug: Rocephin IV 1 grams Route: IV; Rate: calculated rate; Site: right antecubital; as6 03:22 Follow up: Response: No adverse reaction; IV Status: Completed infusion; IV Intake: 81etnn3 03:15 Drug: AZITHromycin PO 1 grams Route: PO; as6 03:22 Follow up: Response: No adverse reaction as6 Medication: 03:24 VIS not applicable for this client. as6 Intake: 03:22 IV: 10ml; Total: 10ml. as6 Outcome: 03:01 Discharge ordered by . cp 03:23 Discharged to home ambulatory, with significant other. as6 03:23 Condition: stable 03:23 Discharge instructions given to patient, Instructed on discharge instructions, follow up and referral plans. medication usage, Demonstrated understanding of instructions, follow-up care, medications, Prescriptions given X 4. 03:26 Patient left the ED. as6 Signatures: Rell Dickey PA PA cp Alexander, Jessica ja2 Slawson, Ashby, RN RN as6
[2023-01-06] MEDS ORDERED: FLUCONAZOLE 100 MG TAB ONE (03:18)
[2023-01-06] MEDS ORDERED: CEFTRIAXONE 1000 MG/VIAL ONE (03:18)
[2023-01-06] MEDS ORDERED: AZITHROMYCIN 250 MG TAB ONE (03:19)
[2023-01-06 04:00] VITALS: TEMP 98.1
[2023-01-06 04:01] VITALS: BP 134/89; O2SAT 99
== END 2023-01-06 03:26 | disposition home or self-care (01) ==
LOC: ER 22:50
DX: N77.1 Vaginitis, vulvitis and vulvovaginitis in diseases classified elsewhere (principal)
CPT/HCPCS: 36415; 80053; 81001; 81025; 83690; 85025; 87210; 96374; 99284; J0696

== ENCOUNTER 2023-01-25 13:39 | Emergency (ER) | payer SELFPAY ==
--- OUTSIDE RECORDS SUMMARY | 2023-01-25 13:44 | XMS REPORT | Continuity of Care Document ---
:1995 Author Organization [facility] t Address [address] [place] [address] [place] [id number] Care Team Providers Name Role Phone PCP, [...] rs active active ity of problems problems [facility] Allergies, Adverse Reactions, Alerts Allergy Allergy Status Severity Reaction(s) Onset Inactive Treating Comm ents Source Name Type Date Date Clinician NO KNOWN Drug Active Univers ALLERGIE Class ity of S [facility] Social History Social Habit Start Date Stop Date Quantity Comments Source Exposure to 2022-11-10 2022-11-20 Not sure University SARS-CoV-2 00:00:00 20:06:00 [facility]ly [facility] (event) [place] Tobacco use and 2019-11-03 2019-11-03 Smokeless tobacco Un iversity of exposure 00:00:00 00:00:00 non-user [facility] Sex Assigned At [birth year] Universit y of 00:00:00 00:00:00 [facility] Smoking Status Start Date Stop Date Source Never smoked tobacco [facility] Medications Ordered Filled Start Stop Current Ordering [...] mouth ity of tablet 21:26: 00:00 daily. [place] 56 :00 [facility] lisinopril 2022-0 Yes 10mg Take 10 mg U nivers 10 mg 5-01 by mouth ity of tablet 20:09: daily. [address] hydrOXYzine 2022-0 Yes 100mg Take 100 U nivers 100 mg 5-01 mg by ity of capsule 20:09: mouth [address] times [place] daily as needed for Itching. lisinopril 2020-0 Yes 10mg Take 10 mg U nivers 10 mg 4-13 by mouth ity of tablet 14:59: daily. [address] SERTraline 2020-0 Yes 25mg Take 25 mg U nivers 25 mg 4-13 by mouth ity of tablet 14:59: daily. [address] hydrOXYzine 2020-0 Yes 100mg Take 100 U nivers 100 mg 4-13 mg by ity of capsule 14:59: mouth [address] times [place] daily as needed for Itching. lisinopril 2020-0 Yes 10mg Take 10 mg U nivers 10 mg 4-13 by mouth ity of tablet 14:59: daily. [address] SERTraline 2020-0 Yes 25mg Take 25 mg U nivers 25 mg 4-13 by mouth ity of tablet 14:59: daily. [address] hydrOXYzine 2020-0 Yes 100mg Take 100 U nivers 100 mg 4-13 mg by ity of capsule 14:59: mouth [address] [place] [address] ([facility]) [facility] times [place] daily as needed for Itching. lisinopril 2020-0 Yes 10mg Take 10 mg U nivers 10 mg 4-13 by mouth ity of tablet 14:59: daily. [address] SERTraline 2020-0 Yes 25mg Take 25 mg U nivers 25 mg 4-13 by mouth ity of tablet 14:59: daily. [address] hydrOXYzine 2020-0 Yes 100mg Take 100 U nivers 100 mg 4-13 mg by ity of capsule 14:59: mouth 3 [place] [address] (three) Medical times [place] daily as needed for Itching. benzonatate 2020-0 2020- No [id number] 100mg Take 1 Univers (TESSALON 4-13 04-28 capsule by ity MORGANePAR) 100 00:00: 04:59 mouth 3 [place] mg capsule 00 :00 (three) Medica l times [place] daily for 14 days. benzonatate 2020-0 2020- No [id number] 100mg Take 1 Univers (TESSALON 4-13 04-28 capsule by itdom MORGAN) 100 00:00: 04:59 mouth 3 [place] mg capsule 00 :00 (three) Medica l times [place] daily for 14 days. benzonatate 2020-0 2020- No [id number] 100mg Take 1 Univers (TESSALON 4-13 04-28 [facility]GAN) 100 00:00: 04:59 mouth 3 [place] mg capsule 00 :00 (three) Medica l times [place] daily for 14 days. Vital Signs Vital Name Observation Time Observation Value Comments Source Systolic blood 2022-11-21 03:45:27 133 mm[Hg] [facility] Diastolic blood 2022-11-21 03:45:27 84 mm[Hg] [facility] Heart rate 2022-11-21 03:45:27 68 /min [facility] Respiratory rate 2022-11-21 03:45:27 16 /min [facility] Oxygen saturation in 2022-11-21 03:45:27 97 /min [facility] Arterial blood by [facility] Pulse oximetry Branch Body temperature 2022-11-21 01:09:00 36.89 Yue [facility] Body height 2022-11-21 01:09:00 149.9 cm [facility] Body weight 2022-11-21 01:09:00 84.823 [facility] 2022-11-21 01:09:00 37.77 kg/m2 Universi ty [facility] Systolic blood 2019-11-03 14:56:00 113 mm[Hg] Univer sity of pressure [facility] Diastolic blood 2019-11-03 14:56:00 78 mm[Hg] Unive rsity of pressure [facility] Heart rate 2019-11-03 14:56:00 100 /min Universi ty [facility] Body temperature 2019-11-03 14:56:00 36.61 Yue [facility] Oxygen saturation in 2019-11-03 14:56:00 99 /min [facility] Arterial blood by [facility] Pulse oximetry [place] Procedures Procedure Date / Time Performed Performing Clinician [facility] e CONSENT/REFUSAL FOR 2022-11-21 01:02:48 [facility] AND Name [facility] TREATMENT NOTICE OF PRIVACY 2022-11-21 01:02:09 Doctor Unassigned, No [facility] PR[facility] Name Medical [place] Encounters Start End Encounter Admission Attending Care Care Encounter Source Date/Time Date/Time Type Type Clinicians Facility Department ID 2023-01-15 2023-01-15 Outpatient BISHNU GOETZ [id number] [place] 15:16:25 15:16:25 [id number] F Graham 2022-11-20 2022-11-20 [facility] [id number] Univers 20:12:00 23:10:00 TRAM dykes [facility] 2022-11-20 2022-11-20 Emergency [facility] [id number] Univers 20:12:00 23:10:00 Tram [place] [id number] i ty [facility] [id number] [facility] [id number] Medi gurpreet 084 [place] 2022-09-28 2022-09-28 Outpatient SFA BISHNU [id number] [place] 14:44:45 14:44:45 [id number] F Hardeep 2021-11-09 2021-11-09 Outpatient MARCO A DELUNA [facility] [address] [place] 11:37:00 11:37:00 IE 0420 [facility] 2019-11-04 2019-11-04 Telephone Nereida [facility] [id number] Univers 00:00:00 00:00:00 Sierra MustHaveMenus [id number] it y of [place] [id number] Gene as Professio [id number] Ma dical [facility] [address] [place] [address] Building [facility] 2019-11-04 2019-11-04 Telephone MIKAYLA Allison [id number] Univers 00:00:00 00:00:00 Agnes BOOKER [id number] i ty of [facility] [id number] Gene as [id number] [address] 2019-11-03 2019-11-03 Urgent Pob1, Acute Care Clinic [facility] [id number] Univers 09:50:03 10:10:03 Care Sierra Villarreal [facility] [id number] ity of [place] [id number] Gene as Professio [id number] Ma dic[address] Office [address] One 2019-11-03 2019-11-03 Outpatient R NEREIDA [facility] [id number] Univers 10:00:00 10:00:00 SIERRA dykes of [facility] Results This patient has no known results.
[2023-01-25 14:17] LABS: Specific Gravity 1.022 (1.005-1.030)
[2023-01-25 14:27] LABS: Specific Gravity 1.022 (1.005-1.030); Urine Bacteria <20 /HPF (<20); Urine Bilirubin NEGATIVE (Negative); Urine Blood Negative (Negative); Urine Clarity Turbid (Clear); Urine Color Light-Yellow (Yellow); Urine Glucose NEGATIVE (Negative); Urine Mucus 4+ /HPF (None Seen); Urine Protein TRACE (Negative); Urine RBC <5 /HPF (None Seen); Urine Urobilinogen Normal (Normal); Urine WBC Clump Rare /HPF (None Seen)
--- NOTE | 2023-01-25 15:14 | RAD REPORT ---
EXAM DESCRIPTION: CT - Head C Spine Cap Wo Con - 01/25/2023 2:36 pm CLINICAL HISTORY: TRAUMA COMPARISON: No comparisons TECHNIQUE: Head and cervical spine CT images were obtained without IV contrast. Chest, abdomen, and pelvis CT images were obtained also without IV contrast. Multiplanar reformats were generated and rev iewed. All CT scans are performed using dose optimization technique as appropriate and may include automated exposure control or mA/KV adjustment according to patient size. FINDINGS: CT HEAD: No intracranial hemorrhage, mass effect, or edema. No evidence of acute territorial infarct. No midli ne shift or abnormal fluid collection. The ventricles are normal in caliber and configuration for age . Basal cisterns are patent. Mastoid aircells and paranasal sinuses are clear. No acute skull fractur e. CT CERVICAL SPINE: No acute cervical spine fracture or subluxation. Vertebral body heights are well maintained. Facet carmen ints are normal in alignment. No hyperattenuating canal hematoma. Prevertebral and paraspinous soft t issues are unremarkable. CT CHEST: No pneumothorax, pulmonary contusion or pleural fluid collection. Subpleural right lower lobe crescen tic opacities, nonspecific, but suggest atelectasis. No mediastinal hematoma and the aorta and pulmon tracey arteries are unremarkable. No chest will mass or abnormal axillary finding. No displaced rib frac ture or other significant bony finding. CT ABDOMEN/ PELVIS: No evidence of traumatic injury to solid abdominal viscera. Diffuse hepatic parenchymal hypoattenuati on suggesting steatosis. Gallbladder and biliary tree are unremarkable. No bowel injury or significan t finding. No free air, free fluid or abnormal fat stranding. Urinary bladder is suboptimally distend ed limiting evaluation. No significant bony finding. Soft tissue swelling along the left paramidline lower back, with a lenticular hyperdense collection m ost suggestive of a hematoma, measuring 7.9 x 5.9 x 1.7 centimeters in greatest dimensions. IMPRESSION: Soft tissue swelling and lenticular hematoma along the left paramidline lower back subcu taneous soft tissues, measuring 7.9 x 5.9 x 1.7 cm in greatest dimensions. No other acute traumatic findings. Diffuse hepatic parenchymal steatosis.
--- NOTE | 2023-01-25 15:22 | EDPHYS ---
Physician Documentation [facility] Name: Kenyetta Conti Age: 27 yrs Sex: Female : 1995 Arrival Date: 01/25/2023 Time: 13:39 Bed 11 Private MD: ED Physician Jonh Winters HPI: 01/25 17:44 This 27 yrs old Female presents to ER via Ambulatory with complaints of Fall kb Injury, Low Back Pain, Back Injury. 17:44 Details of fall: The patient fell from a height, down approximately 15 stairs. Onset: kb The symptoms/episode began/occurred 30 min [place]. Associated injuries: The patient sustained no obvious injury, left low back, hematoma, painful injury, swelling. Severity of symptoms: At their worst the symptoms were moderate, in the emergency department the symptoms are unchanged. The patient has not experienced similar symptoms in the past. The patient has not recently seen a physician. Pt reports she was going down the stairs and they were wet. States she slipped on top step and fell the rest of the way down (12-15 steps). c/o to left lower back. Denies headache or loc. States she was dizzy immediately following fall, but that has resolved. . Historical: - Allergies: 13:44 No Known Allergies; ll1 - PMHx: 13:42 High Cholesterol; Hypertension; palpatations; ll1 - PSHx: 13:44 None; ll1 - Immunization history:: Adult Immunizations up to date, Client reports having NOT received the Covid vaccine. - Social history:: Smoking status: Patient denies any tobacco usage or history of. ROS: 17:43 Constitutional: Negative for fever, chills, and weight loss. kb 17:43 Back: Positive for pain at rest, pain with movement, of the left low back. 17:43 All other systems are negative. 17:44 Neuro: Positive for dizziness. kb Exam: 17:43 Constitutional: This is a well developed, well nourished patient who is awake, alert, kb and in no acute distress. Head/Face: Normocephalic, atraumatic. Eyes: Pupils equal round and reactive to light, extra-ocular motions intact. Lids and lashes normal. Conjunctiva and sclera are non-icteric and not injected. Cornea within normal limits. Periorbital areas with no swelling, redness, or edema. ENT: Moist Mucous membranes Neck: Trachea midline, no thyromegaly or masses palpated, and no cervical lymphadenopathy. Supple, full range of motion without nuchal rigidity, or vertebral point tenderness. No Meningismus. Chest/axilla: Normal chest wall appearance and motion. Cardiovascular: Regular rate and rhythm with a normal S1 and S2. No gallops, murmurs, or rubs. No pulse deficits. Respiratory: Respirations even and unlabored. No increased work of breathing. Talking in full sentences Abdomen/GI: Soft, non-tender. No distention Back: No spinal tenderness. No costovertebral tenderness. Full range of motion. MS/ Extremity: Pulses equal, no cyanosis. Neurovascular intact. Full, normal range of motion. Neuro: Awake and alert, GCS 15, oriented to person, place, time, and situation. Moves all extremities. Normal gait. 17:43 Back: pain, that is moderate, of the left low back, ROM is painful, normal spinal alignment noted. 17:43 Skin: Appearance: normal except for affected area, hematoma to left low back. Vital Signs: 13:42 Pain 10/10; ll1 13:45 BP 155 / 105; Pulse 100; Resp 18; Temp 98.1; Pulse Ox 100% on R/A; Weight 88.9 kg; ll1 Height 4 ft. 11 in. ; Pain 10/10; 15:32 BP 148 / 92; Pulse 92; Resp 18; Pulse Ox 99% ; ko1 13:45 Body Mass Index 39.59 (88.90 kg, 149.86 cm) ll1 13:42 Pain Scale: Adult ll1 13:45 Pain Scale: Adult ll1 MDM: 13:45 Patient medically screened. kb 17:42 Differential diagnosis: abrasion, closed head injury, contusion, fracture, multiple kb trauma, sprain, hematoma. Data reviewed: vital signs, nurses notes. Counseling: I had a detailed discussion with the patient and/or guardian regarding: the historical points, exam findings, and any diagnostic results supporting the discharge/admit diagnosis, radiology results, the need for outpatient follow up, a family practitioner, to return to the emergency department if symptoms worsen or persist or if there are any questions or concerns that arise at home. 01/25 13:48 Order name: Test, Urine; Complete Time: 14:27 kb 01/25 13:48 Order name: Urinalysis w/ reflexes; Complete Time: 14:30 kb 01/25 13:48 Order name: CT Traumagram (Head C Spine CAP wo con); Complete Time: 15:15 kb Administered Medications: 15:24 Drug: [place] PO 10 mg-325 mg 1 tabs Route: PO; ko1 Disposition: 20:37 Co-signature as Attending Physician, John Winters MD I reviewed the patient's care rn provided by the Advanced Practice Provider and agree with the diagnosis and treatment plan. Disposition Summary: 01/25/23 15:21 Discharge Ordered Location: Home kb Condition: Stable kb Diagnosis - Hematoma left low back kb - Fall (on) (from) other stairs and steps kb Followup: kb - With: Emergency Department - When: As needed - Reason: Worsening of condition Followup: kb - With: Private Physician - When: 2 - 3 days - Reason: Recheck today's complaints, Continuance of care, Re-evaluation by your physician Discharge Instructions: - Discharge Summary Sheet kb - Hematoma, Veme-fo-Fbur kb Forms: - Medication Reconciliation Form kb - Thank You Letter kb - Antibiotic Education kb - Prescription Opioid Use kb - [email or web address] kb Prescriptions: - Diclofenac Sodium 75 mg Oral tablet,delayed release (DR/EC) - take 1 tablet by ORAL route 2 times per day As needed; 30 tablet; Refills: 0, kb Product Selection Permitted - orphenadrine citrate 100 mg Oral Tablet Sustained Release - take 1 tablet by ORAL route 2 times per day As needed; 20 tablet; Refills: 0, kb Product Selection Permitted Signatures: Dispatcher [employer] Brittni Hinojosa, SAGE-John Gaston MD MD rn Lewis, Lynsay RN RN ll1 Pura Jim RN RN ko1
--- NOTE | 2023-01-25 15:22 | ER ---
Nurse's Notes [facility] Name: Kenyetta Conti Age: 27 yrs Sex: Female : 1995 Arrival Date: 01/25/2023 Time: 13:39 Bed 11 Private MD: Diagnosis: Hematoma left low back;Fall (on) (from) other stairs and steps Presentation: 01/25 13:42 Chief complaint: Patient states: Tripped on upper steps, fell down approx. 12-15 steps. ll1 Low back and bruising since. Coronavirus screen: Client denies travel out of the [place] in the last 14 days. At this time, the client does not indicate any symptoms associated with coronavirus-19. Ebola Screen: Patient denies travel to an Ebola-affected area in the 21 days before illness onset. Initial Sepsis Screen: Does the patient meet any 2 criteria? No. Patient's initial sepsis screen is negative. Does the patient have a suspected source of infection? Yes: Bone or joint infection. Risk Assessment: Do you want to hurt yourself or someone else? Patient reports no desire to harm self or others. Onset of symptoms was January 25, 2023. 13:42 Method Of Arrival: Ambulatory ll1 13:42 Acuity: JUSTIN 3 ll1 Triage Assessment: 13:45 General: Appears uncomfortable, Behavior is cooperative, appropriate for age. Pain: ll1 Complains of pain in low back Quality of pain is described as aching. Musculoskeletal: Circulation, motion, and sensation intact. Capillary refill < 3 seconds. Historical: - Allergies: 13:44 No Known Allergies; ll1 - PMHx: 13:42 High Cholesterol; Hypertension; palpatations; ll1 - PSHx: 13:44 None; ll1 - Immunization history:: Adult Immunizations up to date, Client reports having NOT received the Covid vaccine. - Social history:: Smoking status: Patient denies any tobacco usage or history of. Screenin:32 [facility] ED Fall Risk Assessment (Adult) History of falling in the last 3 months, ko1 including since admission Yes- single mechanical fall (1 pt) Confusion or Disorientation No (0 pts) Intoxicated or Sedated No (0 pts) Impaired Gait No (0 pts) Mobility Assist Device Used No (0 pt) Altered Elimination No (0 pt) Score/Fall Risk Level 0 - 2 = Low Risk Oriented to surroundings, Maintained a safe environment, Educated pt \T\ family on fall prevention, incl call for assistance when getting out of bed, Assessed \T\ reinforced patient's understanding of fall precautions, Provided non-skid footwear, Hourly rounding (assess needs \T\ fall precautionary measures) done, Used ambulatory aids as needed (educated on \T\ assisted with), Used gait belt as appropriate. Abuse screen: Denies threats or abuse. Denies injuries from another. Nutritional screening: No deficits noted. Tuberculosis screening: No symptoms or risk factors identified. Vital Signs: 13:42 Pain 10/10; ll1 13:45 BP 155 / 105; Pulse 100; Resp 18; Temp 98.1; Pulse Ox 100% on R/A; Weight 88.9 kg; ll1 Height 4 ft. 11 in. ; Pain 10/10; 15:32 BP 148 / 92; Pulse 92; Resp 18; Pulse Ox 99% ; ko1 13:45 Body Mass Index 39.59 (88.90 kg, 149.86 cm) ll1 13:42 Pain Scale: Adult ll1 13:45 Pain Scale: Adult ll1 ED Course: 13:39 Patient arrived in ED. am2 13:44 Triage completed. ll1 13:44 Brittni Craig FNP-C [facility]. kb 13:44 John Winters MD is Attending Physician. kb 13:45 Arm band placed on Patient placed in an exam room, on a stretcher. ll1 14:02 Test, Urine Sent. ll1 14:02 Urinalysis w/ reflexes Sent. ll1 14:05 Radiology exam delayed due to test not completed at this time. ls3 14:38 CT Traumagram (Head C Spine CAP wo con) In Process Unspecified. EDMS 14:59 Pura Jim, SALENA is Primary Nurse. ko1 15:00 Patient has correct armband on for positive identification. Bed in low position. Call ko1 light in reach. 15:00 No provider procedures requiring assistance completed. Patient did not have IV access ko1 during this emergency room visit. Administered Medications: 15:24 Drug: Chili PO 10 mg-325 mg 1 tabs Route: PO; ko1 Medication: 15:32 VIS not applicable for this client. ko1 Outcome: 15:21 Discharge ordered by MD. clark 15:34 Discharged to home via wheelchair, with family. ko1 15:34 Condition: stable 15:34 Discharge instructions given to patient, family, Instructed on discharge instructions, follow up and referral plans. medication usage, Demonstrated understanding of instructions, follow-up care, medications, Prescriptions given X 2. 15:34 Patient left the ED. ko1 Signatures: Dispatcher [employer] EDMS Brittni Craig, GEOSPATIAL IMAGERY INTELLIGENCE ANALYST-C GEOSPATIAL IMAGERY INTELLIGENCE ANALYST-CkCelina Caceres amLuz Elena Chery ls3 Peter Lopez, RN RN ll1 Pura Jim, RN RN ko1
[2023-01-25] MEDS ORDERED: HYDROCODONE/APAP 10/325 TAB ONE (15:34)
[2023-01-25 15:55] VITALS: TEMP 98.1
[2023-01-25 15:57] VITALS: BP 148/92; O2SAT 99
== END 2023-01-25 15:34 | disposition home or self-care (01) ==
LOC: ER 13:39
DX: S30.0XXA Contusion of lower back and pelvis, initial encounter (principal); W10.8XXA Fall (on) (from) other stairs and steps, initial encounter
CPT/HCPCS: 70450; 71250; 72125; 81001; 81025; 99284

== ENCOUNTER 2023-05-12 07:22 | Emergency (ER) | payer SELFPAY ==
--- OUTSIDE RECORDS SUMMARY | 2023-05-12 07:26 | XMS REPORT | Continuity of Care Document ---
:1995 Author Organization [facility] t Address [address] [facility] [address] [place] [id number] Care Team Providers Name Role Phone PCP, [...] rs active active ity of problems problems [facility] Allergies, Adverse Reactions, Alerts Allergy Allergy Status Severity Reaction(s) Onset Inactive Treating Comm ents Source Name Type Date Date Clinician NO KNOWN Drug Active Univers ALLERGIE Class ity of S [facility] Social History Social Habit Start Date Stop Date Quantity Comments Source Exposure to 2022-11-10 2022-11-20 Not sure University SARS-CoV-2 00:00:00 20:06:[address] [facility] (event) [place] Tobacco use and 2019-11-03 2019-11-03 Smokeless tobacco Un iversity of exposure 00:00:00 00:00:00 non-user [facility] Sex Assigned At [birth year] Universit y of 00:00:00 00:00:00 [facility] Smoking Status Start Date Stop Date Source Never smoked tobacco [facility] Medications Ordered Filled Start Stop Current Ordering [...] mouth ity of tablet 21:26: 00:00 daily. [place] 56 :00 [facility] lisinopril 2022-0 Yes 10mg Take 10 mg U nivers 10 mg 5-01 by mouth ity of tablet 20:09: daily. [address] hydrOXYzine 2022-0 Yes 100mg Take 100 U nivers 100 mg 5-01 mg by ity of capsule 20:09: mouth [address] times [place] daily as needed for Itching. lisinopril 2020-0 Yes 10mg Take 10 mg U nivers 10 mg 4-13 by mouth ity of tablet 14:59: daily. [address] SERTraline 2020-0 Yes 25mg Take 25 mg U nivers 25 mg 4-13 by mouth ity of tablet 14:59: daily. [address] hydrOXYzine 2020-0 Yes 100mg Take 100 U nivers 100 mg 4-13 mg by ity of capsule 14:59: mouth [address] times [place] daily as needed for Itching. lisinopril 2020-0 Yes 10mg Take 10 mg U nivers 10 mg 4-13 by mouth ity of tablet 14:59: daily. [address] SERTraline 2020-0 Yes 25mg Take 25 mg U nivers 25 mg 4-13 by mouth ity of tablet 14:59: daily. [address] hydrOXYzine 2020-0 Yes 100mg Take 100 U nivers 100 mg 4-13 mg by ity of capsule 14:59: mouth 3 [place] [id number] ([facility]) [facility] times [place] daily as needed for Itching. lisinopril 2020-0 Yes 10mg Take 10 mg U nivers 10 mg 4-13 by mouth ity of tablet 14:59: daily. [address] SERTraline 2020-0 Yes 25mg Take 25 mg U nivers 25 mg 4-13 by mouth ity of tablet 14:59: daily. [address] hydrOXYzine 2020-0 Yes 100mg Take 100 U nivers 100 mg 4-13 mg by ity of capsule 14:59: mouth 3 [place] [address] (three) Medical times Branch daily as needed for Itching. benzonatate 2020-0 2020- No [id number] 100mg Take 1 Univers (TESSALON 4-13 04-28 capsule by ity MORGANChromaDex) 100 00:00: 04:59 mouth 3 [place] mg capsule 00 :00 (three) Medica l times Branch daily for 14 days. benzonatate 2020-0 2020- No [id number] 100mg Take 1 Univers (TESSALON 4-13 04-28 capsule by itdom MORGAN) 100 00:00: 04:59 mouth 3 [place] mg capsule 00 :00 (three) Medica l times Branch daily for 14 days. benzonatate 2020-0 2020- No [id number] 100mg Take 1 Univers (TESSALON 4-13 04-28 [facility] 100 00:00: 04:59 mouth 3 [place] mg capsule 00 :00 (three) Medica l times Branch daily for 14 days. Vital Signs Vital Name Observation Time Observation Value Comments Source Systolic blood 2022-11-21 03:45:27 133 mm[Hg] [facility] Diastolic blood 2022-11-21 03:45:27 84 mm[Hg] [facility] Heart rate 2022-11-21 03:45:27 68 /min [facility] Respiratory rate 2022-11-21 03:45:27 16 /min [facility] Oxygen saturation in 2022-11-21 03:45:27 97 /min [facility] Arterial blood by [facility] Pulse oximetry Branch Body temperature 2022-11-21 01:09:00 36.89 Yue [facility] Body height 2022-11-21 01:09:00 149.9 cm [facility] Body weight 2022-11-21 01:09:00 84.823 kg Universi ty [facility] BMI 2022-11-21 01:09:00 37.77 kg/m2 Universi ty [facility] Systolic blood 2019-11-03 14:56:00 113 mm[Hg] Univer sity of pressure [facility] Diastolic blood 2019-11-03 14:56:00 78 mm[Hg] Unive rsity of pressure [facility] Heart rate 2019-11-03 14:56:00 100 /min Universi ty [facility] Body temperature 2019-11-03 14:56:00 36.61 Yue [facility] Oxygen saturation in 2019-11-03 14:56:00 99 /min [facility] Arterial blood by [facility] Pulse oximetry [place] Procedures Procedure Date / Time Performed Performing Clinician [facility] e CONSENT/REFUSAL FOR 2022-11-21 01:02:48 [facility] Un[facility]igned, [facility] AND Name Medical [place] TREATMENT NOTICE OF PRIVACY 2022-11-21 01:02:09 Doctor Unassigned, No [facility] PR[facility] Name Medical Branch Encounters Start End Encounter Admission Attending Care Care Encounter Source Date/Time Date/Time Type Type Clinicians Facility Department ID 2023-05-09 2023-05-09 Outpatient BISHNU [facility] [id number] Chet 13:43:02 13:43:02 [id number] [address] 2023-01-15 2023-01-15 Outpatient BISHNU GOETZ [id number] Chet 15:16:25 15:16:25 [id number] F [place] 2022-11-20 2022-11-20 Emergency X JAJA PUTNAM ERT [id number] Univers 20:12:00 23:10:00 TRAM ity of [facility] 2022-11-20 2022-11-20 Emergency JAJA Putnam [id number] Univers 20:12:00 23:10:00 Tram MORLEY [id number] i ty [facility] [id number] [facility] [id number] [facility] 084 Branch 2022-09-28 2022-09-28 Outpatient SFA [facility] [id number] Chet 14:44:45 14:44:45 [id number] F [address]ep 2021-11-09 2021-11-09 Outpatient MARCO A DELUNA [facility] [id number] [place] 11:37:00 11:37:00 IE 0420 [facility] 2019-11-04 2019-11-04 Telephone Nereida [facility] [id number] Univers 00:00:00 00:00:00 Sierra [employer] [id number] it y of [place] [id number] Gene as Professio [id number] [address] Office Building One 2019-11-04 2019-11-04 Telephone MIKAYLA Allison [id number] Univers 00:00:00 00:00:00 Agnes BOOKER [id number] i ty of [facility] [id number] Gene as [id number] [address] 2019-11-03 2019-11-03 Urgent Pob1, Acute Care Clinic [facility] [id number] Univers 09:50:03 10:10:03 Care Sierra Villarreal [facility] [id number] ity of [place] [id number] Gene as Professio [id number] [address] Office [address] 2019-11-03 2019-11-03 Outpatient Liza VILLARREAL [facility] [id number] Univers 10:00:00 10:00:00 SIERRA dykes of [facility] Results This patient has no known results.
[2023-05-12 07:58] LABS: Specific Gravity 1.014 (1.005-1.030); Urine Bilirubin NEGATIVE (Negative); Urine Blood Negative (Negative); Urine Clarity Clear (Clear); Urine Color Colorless (Yellow); Urine Glucose NEGATIVE (Negative); Urine Protein NEGATIVE (Negative); Urine Urobilinogen Normal (Normal)
[2023-05-12 07:59] LABS: Specific Gravity 1.014 (1.005-1.030)
--- NOTE | 2023-05-12 08:40 | ER ---
Nurse's Notes [facility] Name: Kenyetta Conti Age: 27 yrs Sex: Female : 1995 Arrival Date: 05/12/2023 Time: 07:22 Bed 5 Private MD: Diagnosis: Vaginal pain status post intercourse Presentation: 05/12 07:36 Chief complaint: Patient states: Pelvic discomfort since Sunday. Noticed burning with ll1 urination, painful sex, and vaginal swelling that began today. No fever. Coronavirus screen: Vaccine status: Patient reports being unvaccinated. Client denies travel out of the [place] in the last 14 days. congestion, Client presents with at least one sign or symptom that may indicate coronavirus-19. Standard/surgical mask placed on the client. Ebola Screen: Patient denies travel to an Ebola-affected area in the 21 days before illness onset. Initial Sepsis Screen: Does the patient meet any 2 criteria? No. Patient's initial sepsis screen is negative. Does the patient have a suspected source of infection? Yes: Other: pelvic pain. Risk Assessment: Do you want to hurt yourself or someone else? Patient reports no desire to harm self or others. Onset of symptoms was May 08, 2023. 07:36 Method Of Arrival: Ambulatory ll1 07:36 Acuity: JUSTIN 3 ll1 Triage Assessment: 07:40 General: Appears in no apparent distress. Behavior is calm, cooperative, appropriate ll1 for age. Pain: Complains of pain in pelvis Quality of pain is described as burning, aching. : at vaginal opening redness, burning Reports burning with urination, vaginal itching, burning. Historical: - Allergies: 07:36 No Known Allergies; ll1 - PMHx: 07:36 High Cholesterol; Hypertension; palpatations; ll1 - PSHx: 07:36 tooth pulled; ll1 - Immunization history:: Adult Immunizations up to date. - Social history:: Smoking status: Patient denies any tobacco usage or history of. Screenin:55 [facility] ED Fall Risk Assessment (Adult) Score/Fall Risk Level 0 - 2 = Low Risk hb Oriented to surroundings, Maintained a safe environment, Educated pt \T\ family on fall prevention, incl call for assistance when getting out of bed. Abuse screen: Denies threats or abuse. Denies injuries from another. Nutritional screening: No deficits noted. Tuberculosis screening: No symptoms or risk factors identified. Assessment: 07:55 General: Appears in no apparent distress. Behavior is calm, cooperative. Pain: Pain hb currently is 3 out of 10 on a pain scale. Neuro: Level of Consciousness is awake, alert, obeys commands, Oriented to person, place, time, situation. Cardiovascular: Patient's skin is warm and dry. Respiratory: Respiratory effort is even, unlabored, Respiratory pattern is regular, symmetrical. GI: No signs and/or symptoms were reported involving the gastrointestinal system. : Reports pelvic pain, vaginal itching. EENT: No signs and/or symptoms were reported regarding the EENT system. Derm: Skin is pink, warm \T\ dry. Musculoskeletal: No signs and/or symptoms reported regarding the musculoskeletal system. 08:45 Reassessment: Patient appears in no apparent distress at this time. Patient and/or hb family updated on plan of care and expected duration. Pain level reassessed. Patient is alert, oriented x 3, equal unlabored respirations, skin warm/dry/pink. Vital Signs: 07:36 BP 142 / 86; Pulse 77; Resp 17; Temp 97.8; Pulse Ox 98% ; Weight 91.63 kg; Height 4 ft. ll1 11 in. ; Pain 7/10; 07:36 Body Mass Index 40.80 (91.63 kg, 149.86 cm) ll1 07:36 Pain Scale: Adult ll1 ED Course: 07:25 Patient arrived in ED. ts1 07:29 Arm band placed on Patient placed in an exam room, on a stretcher. ll1 07:37 Tj Scanlon MD is Attending Physician. kdr 07:44 Triage completed. ll1 07:55 Patient has correct armband on for positive identification. Provided Education on: hb tests, wait times. 07:55 Urinalysis w/ reflexes Sent. hb 07:55 Test, Urine Sent. hb 07:55 No provider procedures requiring assistance completed. Patient did not have IV access hb during this emergency room visit. 07:56 Alyson Travis, RN is Primary Nurse. hb Administered Medications: No medications were administered Medication: 07:55 VIS not applicable for this client. hb Outcome: 08:39 Discharge ordered by . kdr 08:49 Discharged to home ambulatory, hb 08:49 Condition: stable 08:49 Discharge instructions given to patient, Instructed on discharge instructions, follow up and referral plans. medication usage, Demonstrated understanding of instructions, follow-up care, medications, 08:49 Patient left the ED. hb Signatures: Tj Scanlon MD MD [facility] Alyson Travis RN RN Peter Lopez RN RN ll1 Lisa Gustafson PAS PAS ts1
--- NOTE | 2023-05-12 08:40 | EDPHYS ---
Physician Documentation [facility] Name: Kenyetta Conti Age: 27 yrs Sex: Female : 1995 Arrival Date: 05/12/2023 Time: 07: Bed 5 Private MD: ED Physician Tj Scanlon HPI: 05/12 09:32 This 27 yrs old Female presents to ER via Ambulatory with complaints of Pelvic kdr Pain. 09:32 Patient presents with pelvic discomfort since Sunday. Pain is primarily associated kdr with sex. She also has some residual pain when she urinates. She also complains of vaginal swelling that began today. Patient otherwise is without fever or other systemic symptoms. Patient is nontoxic-appearing on initial presentation. Onset: The symptoms/episode began/occurred Sunday. Severity of symptoms: At their worst the symptoms were mild in the emergency department the symptoms have improved markedly. The patient has not experienced similar symptoms in the past. The patient has not recently seen a physician. Patient feels that the discomfort is primarily associated with or exacerbated by intercourse. At the time of the her exit interview she had no pain and only minimal pain on initial presentation. Patient is completely nontoxic-appearing and does not walk in a way that would suggest significant vaginal pain. Historical: - Allergies: 07:36 No Known Allergies; ll1 - PMHx: 07:36 High Cholesterol; Hypertension; palpatations; ll1 - PSHx: 07:36 tooth pulled; ll1 - Immunization history:: Adult Immunizations up to date. - Social history:: Smoking status: Patient denies any tobacco usage or history of. ROS: 09:32 Constitutional: Negative for fever, chills, and weight loss, Eyes: Negative for injury, kdr pain, redness, and discharge, ENT: Negative for injury, pain, and discharge, Neck: Negative for injury, pain, and swelling, Cardiovascular: Negative for chest pain, palpitations, and edema, Respiratory: Negative for shortness of breath, cough, wheezing, and pleuritic chest pain, Abdomen/GI: Negative for abdominal pain, nausea, vomiting, diarrhea, and constipation, Back: Negative for injury and pain, MS/Extremity: Negative for injury and deformity, Skin: Negative for injury, rash, and discoloration, Neuro: Negative for headache, weakness, numbness, tingling, and seizure activity. Psych: Negative for depression, anxiety, suicide ideation, homicidal ideation, and hallucinations, Allergy/Immunology: Negative for hives, rash, and allergies, Endocrine: Negative for neck swelling, polydipsia, polyuria, polyphagia, and marked weight changes, Hematologic/Lymphatic: Negative for swollen nodes, abnormal bleeding, and unusual bruising, 09:32 : Positive for urinary symptoms, pelvic pain, burning with urination, Negative for difficulty urinating, bladder incontinence, foul smelling urine, vaginal bleeding, vaginal discharge, vaginal itching, menstrual abnormality, missed period, Exam: 09:32 Constitutional: This is a well developed, well nourished patient who is awake, alert, kdr and in no acute distress. Head/Face: Normocephalic, atraumatic. Eyes: Pupils equal round and reactive to light, extra-ocular motions intact. Lids and lashes normal. Conjunctiva and sclera are non-icteric and not injected. Cornea within normal limits. Periorbital areas with no swelling, redness, or edema. Neck: Trachea midline, no thyromegaly or masses palpated, and no cervical lymphadenopathy. Supple, full range of motion without nuchal rigidity, or vertebral point tenderness. No Meningismus. Chest/axilla: Normal chest wall appearance and motion. Nontender with no deformity. No lesions are appreciated. Cardiovascular: Regular rate and rhythm with a normal S1 and S2. No gallops, murmurs, or rubs. Normal PMI, no JVD. No pulse deficits. Respiratory: Lungs have equal breath sounds bilaterally, clear to auscultation and percussion. No rales, rhonchi or wheezes noted. No increased work of breathing, no retractions or nasal flaring. Abdomen/GI: Soft, non-tender, with normal bowel sounds. No distension or tympany. No guarding or rebound. No evidence of tenderness throughout. Back: No spinal tenderness. No costovertebral tenderness. Full range of motion. Skin: Warm, dry with normal turgor. Normal color with no rashes, no lesions, and no evidence of cellulitis. MS/ Extremity: Pulses equal, no cyanosis. Neurovascular intact. Full, normal range of motion. Neuro: Awake and alert, GCS 15, oriented to person, place, time, and situation. Cranial nerves II-XII grossly intact. Motor strength 5/5 in all extremities. Sensory grossly intact. Cerebellar exam normal. Normal gait. Psych: Awake, alert, with orientation to person, place and time. Behavior, mood, and affect are within normal limits. 09:32 : Pelvic Exam: External exam: is normal, erythema is noted, no appreciated Bartholin's cyst, no lesions, no ulcerations, no warts seen, Vital Signs: 07:36 BP 142 / 86; Pulse 77; Resp 17; Temp 97.8; Pulse Ox 98% ; Weight 91.63 kg; Height 4 ft. ll1 11 in. ; Pain 7/10; 07:36 Body Mass Index 40.80 (91.63 kg, 149.86 cm) ll1 07:36 Pain Scale: Adult ll1 MDM: 08:39 Patient medically screened. kdr 09:32 Data reviewed: vital signs, nurses notes, lab test result(s). kdr 05/12 07:43 Order name: Urinalysis w/ reflexes; Complete Time: 08:32 kdr 05/12 07:43 Order name: Test, Urine; Complete Time: 08:32 kdr Administered Medications: No medications were administered Disposition Summary: 05/12/23 08:39 Discharge Ordered Notes: Location: Home kdr Problem: new kdr Symptoms: have improved kdr Condition: Stable kdr Diagnosis - Vaginal pain status post intercourse kdr Followup: kdr - With: Private Physician - When: 2 - 3 days - Reason: If symptoms return, Further diagnostic work-up, Recheck today's complaints, Continuance of care, Re-evaluation by your physician Discharge Instructions: - Discharge Summary Sheet kdr Forms: - Blank Diagnosis Outline kdr - Medication Reconciliation Form kdr - Thank You Letter kdr - Patient Portal Instructions kdr - Leadership Thank You Letter kdr Signatures: Dispatcher [employer] EDTj Cuadra MD MD kdr Peter Lopez RN RN ll1
[2023-05-12 08:54] VITALS: BP 142/86; TEMP 97.8; O2SAT 98
== END 2023-05-12 08:49 | disposition home or self-care (01) ==
LOC: ER 07:22
DX: N94.19 Other specified dyspareunia (principal)
CPT/HCPCS: 81003; 81025; 99283